=== PATIENT | female | born 1950 | race Caucasian/White ===

== ENCOUNTER → 2020-08-14 | Outpatient (CLI) | payer OTHER ==
[~2020-08-14] MED LIST: DOCUSATE SODIU250 MG PO; FEROSUL325 MG PO; HYDROCODONE-AC1 EACH PO; IBUPROFEN600 MG PO; MULTIVITAMIN; SYNTHROID100 MCG PO
[2020-08-14 12:56] LABS: HEMOGLOBIN 14.5 gm/dl (12.3-15.3); RED BLOOD COUNT 4.54 M/UL (4.00-5.10); WHITE BLOOD COUNT 7.3 K/UL (4.5-11.0)
== END ==
LOC: OPSV2 11:00
PROVIDERS: Obstetrics & Gynecology
DX: Z01.818 Encounter for other preprocedural examination (principal)
CPT/HCPCS: 36415; 71046; 81001; 85025; 93005

== ENCOUNTER → 2020-08-24 | Day surgery (SDC) | payer OTHER | END | disposition home or self-care (01) | LOC: OR 08:33 | DX: N87.1 Moderate cervical dysplasia (principal); D25.9 Leiomyoma of uterus, unspecified; N80.0 Endometriosis of uterus; D27.1 Benign neoplasm of left ovary; N83.01 Follicular cyst of right ovary; N83.8 Other noninflammatory disorders of ovary, fallopian tube and broad ligament; E03.9 Hypothyroidism, unspecified; I10 Essential (primary) hypertension; E78.5 Hyperlipidemia, unspecified; G47.00 Insomnia, unspecified; Z87.891 Personal history of nicotine dependence; Z79.899 Other long term (current) drug therapy | CPT/HCPCS: C1769; J0690; J1100; J1885; J2001; J2405; J2704; J2710; J3010; J7120 ==